=== PATIENT | male | born 2000 | race African-American/Black ===

== ENCOUNTER 2023-04-04 11:02 | Emergency (ER) | payer OTHER, SELFPAY ==
[2023-04-04 11:26] VITALS: BP 133/69; PULSE 63; RESP 15; TEMP 36.9; O2SAT 97
--- NOTE | 2023-04-04 11:32 | ED.GENADULT ---
HPI - General Adult General Chief complaint: Allergic Reaction <David Gutierrez PA-C - Last Filed: 04/04/23 18:05> Stated complaint: allergic reaction <MIRTA Love Last Filed: 04/04/23 18:05> Time Seen by Provider: 04/04/23 11:31 <MIRTA Love Last Filed: 04/04/23 18:05> Source: patient <MIRTA Love Last Filed: 04/04/23 18:05> Mode of arrival: ambulatory <MIRTA Love Last Filed: 04/04/23 18:05> Limitations: no limitations <MIRTA Love Last Filed: 04/04/23 18:05> History of Present Illness HPI narrative: This is a 22-year-old male who presents to the ED via EMS with chief complaint of chest and arm swelling beginning 2 hours ago. This started abruptly this morning. He notes he was sitting outside and then he went inside to fix some food when he started to notice his right arm was swollen. He then had the chest pain and shortness of breath along with heart palpitations. He called EMS and states they gave him Benadryl in route when they noticed the swelling. He feels that that helped immensely and he is no longer having any chest pain or shortness of breath. He denies any feelings of throat closing, tongue swelling or lip swelling. <David Gutierrez PA-C - Last Filed: 04/04/23 18:05> Related Data Allergies/adverse reactions: Allergies Allergy/AdvReac Type Severity Reaction Status Date / Time banana Allergy Difficulty Verified 04/04/23 12:18 Breathing shrimp Allergy Difficulty Verified 04/04/23 12:18 Breathing <MIRTA Love Last Filed: 04/04/23 18:05> Exam Narrative: GENERAL: Well-appearing, well-nourished, and in no acute distress. HEAD: Normocephalic, atraumatic. EYES: PERRLA and EOMI. ENT: Airway intact. Nares clear, no rhinorrhea or epistaxis. Mucous membranes moist. Oropharynx without tonsillar hypertrophy exudate or other lesions. No lip or tongue swelling. NECK: Supple. No adenopathy or masses. CHEST: No respiratory distress. Clear to auscultation. No wheezes rales or rhonchi HEART: Regular rate and rhythm. No murmur heard. Normal peripheral pulses. ABDOMEN: Soft, nontender, nondistended, normal active bowel sounds. MSK: Normal range of motion. No edema. SKIN: Warm, dry, no rash. NEURO: Alert and oriented x3. No focal deficits. PSYCH: Normal mood and affect. 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 <Kelley Agosto MD - Last Filed: 04/04/23 19:15> Vital Signs Vital signs: Vital Signs Temperature 98.5 F 04/04/23 11:26 Pulse Rate 63 04/04/23 11:26 Respiratory Rate 15 04/04/23 11:26 Blood Pressure 133/69 04/04/23 11:26 Pulse Oximetry 97 04/04/23 11:26 Oxygen Delivery Room Air 04/04/23 11:26 Temperature 98.5 F 04/04/23 11:26 Pulse Rate 60 04/04/23 12:25 Respiratory Rate 18 04/04/23 12:25 Blood Pressure 120/74 04/04/23 12:25 Pulse Oximetry 100 04/04/23 12:25 Oxygen Delivery Room Air 04/04/23 11:26 <David Gutierrez PA-C - Last Filed: 04/04/23 18:05> Vital Signs Temperature 98.5 F 04/04/23 11:26 Pulse Rate 63 04/04/23 11:26 Respiratory Rate 15 04/04/23 11:26 Blood Pressure 133/69 04/04/23 11:26 Pulse Oximetry 97 04/04/23 11:26 Oxygen Delivery Room Air 04/04/23 11:26 Temperature 98.5 F 04/04/23 11:26 Pulse Rate 60 04/04/23 12:25 Respiratory Rate 18 04/04/23 12:25 Blood Pressure 120/74 04/04/23 12:25 Pulse Oximetry 100 04/04/23 12:25 Oxygen Delivery Room Air 04/04/23 11:26 <Kelley Agosto MD - Last Filed: 04/04/23 19:15> Medical Decision Making MDM Narrative Medical decision making narrative: This is a 22-year-old male who presents to the ED with chief complaint of sudden onset of chest pain, palp
[2023-04-04] MEDS: methylPREDNISolone SOD SUCC 125 MG VIAL IV PUSH (12:18)
[2023-04-04 12:25] VITALS: BP 120/74; PULSE 60; RESP 18; O2SAT 100
--- NOTE | 2023-04-04 12:32 | ECG_ITS ---
Measurements Intervals [place] Rate: 59 P: -56 [place]: 152 QRS: 78 QRSD: 79 T: 61 QT: 417 QTc: 416 Interpretive Statements ECTOPIC ATRIAL BRADYCARDIA ST ELEVATION IN ANTEROLAT/INF LEADS- PROBABLY EARLY REPOLARIZATION ABNORMAL ECG NO PREVIOUS ECG AVAILABLE FOR COMPARISON Electronically Signed On 04-04-2023 13:12:13 CDT by Terrance Sandy D.O.
== END 2023-04-04 13:24 | disposition home or self-care (01) ==
PROVIDERS: Emergency Provider Physician Assistant; PCP Family Medicine
DX: T78.40XA Allergy, unspecified, initial encounter (principal)
CPT/HCPCS: 93005; 96374; 99284; J2930

== ENCOUNTER 2023-07-19 16:02 | Emergency (ER) | payer OTHER, SELFPAY ==
[2023-07-19 16:08] VITALS: BP 124/87; PULSE 57; RESP 14; TEMP 37.2; O2SAT 100
[2023-07-19] MEDS: IBUPROFEN 600 MG TABLET PO (17:52)
--- NOTE | 2023-07-19 18:00 | ED.WOUNDLAC ---
HPI - Wound/Laceration General Chief Complaint: Wound/Laceration Stated Complaint: left arm laceration with razor blade Time Seen by Provider: 07/19/23 17:13 Source: patient Mode of arrival: ambulatory Limitations: no limitations History of Present Illness HPI narrative: This is a 23-year-old male that presents to the emergency department for left hand laceration sustained just prior to arrival. Reports he accidentally cut his hand with a metal box maker. Reports bleeding and pain to the area. Denies decreased range of motion or numbness. He is up-to-date on his tetanus vaccination. Related Data Allergies Allergy/AdvReac Type Severity Reaction Status Date / Time banana Allergy Difficulty Verified 07/19/23 16:37 Breathing shrimp Allergy Difficulty Verified 07/19/23 16:37 Breathing Review of Systems Review of Systems: CONSTITUTIONAL: Denies fever SKIN: Reports laceration All systems reviewed & are unremarkable except as noted in HPI and below PMFSH Past Medical History Medical History (Updated 07/19/23 @ 19:10 by Mariza Barrios PA-C) No active medical problems Social History Social History (Updated 07/19/23 @ 18:01 by Mariza Barrios PA-C) Substance use: never Exam Narrative: GENERAL: Well-appearing, well-nourished, and in no acute distress. HEAD: Normocephalic, atraumatic. EYES: EOMI. EXTREMITIES: Normal range of motion. No edema. 3 cm linear laceration, largely superficial. There is about a 1 cm area that is into subcutaneous tissue. Normal radial pulse. Normal sensation SKIN: Warm, dry, no rash. NEURO: No focal deficits. Alert and oriented x3. PSYCH: Normal mood and affect Course Course Emergency Course: Patient educated on wound care Vital Signs Vital signs: Vital Signs Temperature 99.0 F 07/19/23 16:08 Pulse Rate 57 L 07/19/23 16:08 Respiratory Rate 14 07/19/23 16:08 Blood Pressure 124/87 07/19/23 16:08 Pulse Oximetry 100 07/19/23 16:08 Oxygen Delivery Room Air 07/19/23 16:08 Temperature 99.0 F 07/19/23 16:08 Pulse Rate 57 L 07/19/23 16:08 Respiratory Rate 14 07/19/23 16:08 Blood Pressure 124/87 07/19/23 16:08 Pulse Oximetry 100 07/19/23 16:08 Oxygen Delivery Room Air 07/19/23 16:08 Procedures Laceration Laceration 1: Date: 07/19/23 Time: 19:08 Site: hand Side (If applicable): left Size (cm): 3 Description: linear Depth: simple, single layer Local Anesthetic: lidocaine 1% Amount of anesthesia used (mL): 2 Pre-repair: irrigated ====== Skin Level ====== Skin layer closed with: nylon Size (cm): 4-0 Number of sutures: 2 Technique: simple, interrupted ====== Subcutaneous Layer ====== ====== Muscle Layer ====== ====== Tendon Layer ====== MDM - Wound/Laceration MDM Narrative Medical decision making narrative: Patient presents to the emergency department for left hand laceration sustained just prior to arrival. Patient is neurologically intact. Up-to-date on tetanus. Wound was irrigated and closed with sutures. Patient educated on further wound care. He is to follow-up with primary provider. He was given warnings to return to the ER Differential Diagnosis Differential diagnosis: Likely laceration, abrasion and avulsion of skin Critical Care Time Critical Care Time Critical Care Time: No Discharge Plan Discharge Clinical Impression: Laceration Patient Disposition: Home, Self-Care Condition: Stable Instructions: Care For Your Stitches (ED), Laceration (ED) Additional Instructions: Return to the emergency department if you experience fever, redness or swelling of your wound, abnormal drainage from your wound, or any other symptoms that are concerning to you. Apply antibiotic ointment daily. Do not soak the wound. Clean with mild soap and water daily Follow-up with your primary care
== END 2023-07-19 19:21 | disposition home or self-care (01) ==
PROVIDERS: Emergency Provider Physician Assistant; PCP Family Medicine
DX: S61.412A Laceration without foreign body of left hand, initial encounter (principal); W27.8XXA Contact with other nonpowered hand tool, initial encounter
CPT/HCPCS: 12002; 99282; A9270

== ENCOUNTER 2023-07-21 08:50 | Emergency (ER) | payer OTHER, SELFPAY ==
[2023-07-21 08:59] VITALS: BP 129/81; PULSE 60; RESP 16; TEMP 36.6; O2SAT 99
--- NOTE | 2023-07-21 09:00 | ED.EAR ---
HPI - Ear Problem General Chief complaint: Ear Stated complaint: left ear pain Time Seen by Provider: 07/21/23 09:00 Source: patient Mode of arrival: ambulatory Limitations: no limitations History of Present Illness HPI Narrative: Handy is a 23-year-old male patient presenting to the clinic today with complaints of left ear pain that just started this morning. He reports no fever or chills. Does have nasal congestion. States the pain is worse with coughing, sneezing, or burping Related Data Allergies Allergy/AdvReac Type Severity Reaction Status Date / Time banana Allergy Difficulty Verified 07/21/23 09:00 Breathing shrimp Allergy Difficulty Verified 07/21/23 09:00 Breathing Review of Systems Review of Systems: Pertinent positives per HPI. Patient denies any fever, chills, rash, headache, visual changes, dizziness, cough, runny nose, sore throat, shortness of breath, chest pain, palpitations, nausea, vomiting, diarrhea, constipation, abdominal pain, or any urinary issues. PMFSH Past Medical History Medical History No active medical problems Social History Social History Substance use: never Comments At the time of my signature, I reviewed and agree with the nursing past medical, surgical, social, and family history. There is no relevant family history pertinent to the patient complaint. Exam Narrative: General: Well-developed, well nourished, in no apparent distress Head: Normocephalic, atraumatic Eyes: Pupils equally round and reactive to light bilaterally, EOM intact, sclera and conjunctive clear, no discharge, lids normal Ears: Right tMs intact and congested, left TM intact, bulging, congested, ear canals clear, no drainage, grossly hearing normal. Nose: Nares patent, no discharge, no inflammation, no sinus tenderness. Mouth: Oropharynx without lesions or masses, good dentition, MMM. Neck: Supple, trachea midline, no enlargement of anterior or posterior cervical nodes, no thyroid masses or goiter palpable. Cardio: Regular rate and rhythm, s1 and s2 normal, no murmur appreciated. Resp: Clear to auscultation bilaterally anteriorly and posteriorly, no rhonchi, rales, wheezing or rubs Course Course Emergency Course: Portions of this record may have been created with voice recognition software. Level of Care: Express Care Visit Vital Signs Vital signs: Vital signs reviewed Medical Decision Making MDM Narrative Medical decision making narrative: At the time of visit patient is tearful in the exam table. Reporting that his left ear really hurts. Upon exam it appears that he has eustachian tube dysfunction and congestion behind the left ear without infection. Will place patient on prednisone. Supportive measures were discussed with the patient he voiced understanding discharge instructions agrees to treatment plan. Differential Diagnosis Differential Diagnosis: Otitis media, otitis externa, eustachian tube dysfunction, cerumen impaction, upper respiratory infection Discharge Plan Discharge Clinical Impression: Acute otalgia Qualifiers: Laterality: left Qualified Code(s): H92.02 - Otalgia, left ear Eustachian tube disorder Qualifiers: Laterality: left Qualified Code(s): H69.92 - Unspecified Eustachian tube disorder, left ear Patient Disposition: Home, Self-Care Condition: Stable Instructions: Antibiotic Form, Earache (ED) Additional Instructions: Take any prescribed medications only as directed-prednisone Tylenol/motrin as needed for pain May use heating pad to alleviate pain May take Flonase and [id number] antihistamine such as Zyrtec or Claritin If you get recurrent ear infections it may be warranted to follow up with ENT. Follow up with your PCP in 3-5 days if symptoms persist. Prescriptions: New prednisone 20 mg tabl
== END 2023-07-21 09:24 | disposition home or self-care (01) ==
PROVIDERS: Emergency Provider Nurse Practitioner Family; PCP Family Medicine
DX: H92.02 Otalgia, left ear (principal); H69.92 Unspecified Eustachian tube disorder, left ear; J45.909 Unspecified asthma, uncomplicated
CPT/HCPCS: 99213; G0463

== ENCOUNTER 2024-08-19 15:15 | Emergency (ER) | payer SELFPAY ==
[2024-08-19 15:29] VITALS: BP 112/83; PULSE 114; RESP 16; TEMP 36.6; O2SAT 98
--- NOTE | 2024-08-19 15:43 | ED_ITS ---
HPI - General Adult General Chief complaint: Asthma Stated complaint: difficulty breathing, med refill, work note Time Seen by Provider: 08/19/24 15:43 Source: patient Mode of arrival: ambulatory Limitations: no limitations History of Present Illness HPI narrative: 24 yo M with hx of asthma presents with c/o cough, SOB with exertion. Uses albuterol inhaler when at work, not every day. Induced from activities such as lifting. No more puffs left in inhaler. Has been out for approx. 3 days. No longer has a PCP. all systems reviewed and negative except as noted above. Related Data Home Medications Medication Instructions Recorded Confirmed albuterol sulfate 2 puff inhalation Q30-45M PRN SOB 08/19/24 08/19/24 or wheezing escitalopram oxalate 10 mg tablet 10 mg PO DAILY 08/19/24 08/19/24 Allergies Allergy/AdvReac Type Severity Reaction Status Date / Time banana Allergy Difficulty Verified 08/19/24 15:18 Breathing shrimp Allergy Difficulty Verified 08/19/24 15:18 Breathing Review of Systems Review of Systems: CONSTITUTIONAL: Denies fever, chills, or sweats. EYES: Denies visual changes, redness, or discharge. ENT: Denies rhinorrhea, congestion, sore throat, or otalgia. CARDIOVASCULAR: Denies chest pain, palpitations, or edema. RESPIRATORY: reports cough, wheezing, shortness of breath with exertion GASTROINTESTINAL: Denies abdominal pain, nausea, vomiting, or diarrhea. GENITOURINARY: Denies dysuria or hematuria. SKIN: Denies rash or itching. MUSCULOSKELETAL: Denies back pain, joint pain, or myalgia. NEUROLOGIC: Denies headache, numbness, or weakness. PSYCHIATRIC: Denies anxiety or depression. All other systems reviewed are negative, except as documented in HPI. PMFSH Past Medical History Medical History No active medical problems Social History Social History Substance use: never Comments At time of signature, agree with nursing past medical, surgical, social and family history. There is no relevant family history pertinent to the presenting complaint. Exam Narrative: GENERAL: This is a well-nourished, well-developed patient, in no apparent distress. HEAD: normocephalic, atraumatic. EYES: PERRL. Sclera clear/white. Vision is grossly intact. EARS: External ears normal NOSE: External nose normal NECK: Neck supple, non-tender without lymphadenopathy, masses or thyromegaly. CARDIOVASCULAR: Regular rate and rhythm without murmurs, gallops, or rubs. RESPIRATORY: Mild wheezing and coarse on expiration. Breath sounds equal bilaterally. No rales, or rhonchi. SKIN: warm, Dry, intact with no suspicious lesions or rash, good texture and turgor. NEURO: awake, alert, and oriented to person, place and time. There were no obvious focal neurologic abnormalities. EXTREMITIES: No joint tenderness, effusion, or edema noted. Course Course Level of Care: Express Care Visit Vital Signs Vital signs: Vital Signs Temperature 36.6 C 08/19/24 15:29 Pulse Rate 114 H 08/19/24 15:29 Respiratory Rate 16 08/19/24 15:29 Blood Pressure 112/83 08/19/24 15:29 Pulse Oximetry 98 08/19/24 15:29 Oxygen Delivery Room Air 08/19/24 15:29 Temperature 36.6 C 08/19/24 15:29 Pulse Rate 114 H 08/19/24 15:29 Respiratory Rate 16 08/19/24 15:29 Blood Pressure 112/83 08/19/24 15:29 Pulse Oximetry 98 08/19/24 15:29 Oxygen Delivery Room Air 08/19/24 15:29 reviewed Medical Decision Making MDM Narrative Medical decision making narrative: Denies chest tightness. No shortness of breath at rest. Will refill patient's albuterol inhaler and start on prednisone. No respiratory distress noted. Patient is aware of diagnosis, understands and agrees to treatment plan. Anticipatory guidance given. Patient agrees to follow-up as directed and is aware of reasons to seek care at the emergency department. Portions of this record may have been created with voice recognition software Vital Signs Vital Signs: Vital Signs Temperature 36.6 C 08/19/24 15:29 Pulse Rate 114 H 08/19/24 15:29 Respiratory Rate 16 08/19/24 15:29 Blood Pressure 112/83 08/19/24 15:29 Pulse Oximetry 98 08/19/24 15:29 Oxygen Delivery Room Air 08/19/24 15:29 Temperature 36.6 C 08/19/24 15:29 Pulse Rate 114 H 08/19/24 15:29 Respiratory Rate 16 08/19/24 15:29 Blood Pressure 112/83 08/19/24 15:29 Pulse Oximetry 98 08/19/24 15:29 Oxygen Delivery Room Air 08/19/24 15:29 Discharge Plan Discharge Clinical Impression: Mild asthma exacerbation Patient Disposition: Home, Self-Care Condition: Stable Instructions: Asthma (DC) Additional Instructions: use albuterol inhaler as prescribed. Start oral prednisone today. Prescriptions: New albuterol sulfate [Ventolin HFA] 90 mcg/actuation HFA aerosol inhaler 2 puff inhalation Q4-6H PRN (Reason: shortness of breath or wheezing) Qty: 8.5 0RF prednisone 20 mg tablet 40 mg PO DAILY 5 Days Qty: 10 0RF No Action albuterol sulfate 2 puff inhalation Q30-45M PRN (Reason: SOB or wheezing) escitalopram oxalate 10 mg tablet 10 mg PO DAILY Follow-up/Referrals: PHYSICIAN,C UNIX DEVELOPER [Primary Care Provider] - Wilson Harris MD [Physician] - 1 Week ( establish care with a primary care physician) Stand Alone Forms: Work/School Release IP Time of Disposition: 15:48
== END 2024-08-19 16:00 | disposition home or self-care (01) ==
PROVIDERS: Emergency Provider Nurse Practitioner Family
DX: J45.901 Unspecified asthma with (acute) exacerbation (principal)
CPT/HCPCS: 99213; G0463